=== PATIENT | male | born 1995 | race Two or more races ===

== ENCOUNTER 2017-07-19 19:15 | Observation (INO) | payer OTHER ==
[2017-07-19] MEDS ORDERED: NS 1,000 ML IV ONE ×2 (19:22→20:15)
--- NOTE | 2017-07-19 19:32 | EDPHY ---
HPI/HX/ROS/PE/MDM Narrative: CHIEF COMPLAINT: Abdominal pain HPI: The patient is a healthy 21 y/o male complaining of abdominal pain onset 1: 00 AM, 18 hours ago. He describes the pain as aching and worsened by touching the area. He had loose stool this morning and associated nausea. He denies vomiting, diarrhea, or any other associated symptoms. He denies history of abdominal surgery. REVIEW OF SYSTEMS: Aside from elements discussed in the HPI, a comprehensive 10-point review of systems was reviewed and is negative. PMH: Denies. 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 ENT:Eyes are normal to inspection. ENT inspection normal. Neck: Normal inspection. Full range of motion. Respiratory:No respiratory distress. Breath sounds normal bilaterally. Cardiovascular: Regular rate and rhythm. Strong peripheral pulses. Normal cap refill. Abdomen: Epigastrium and right lower quadrant tender to palpation. There are no peritoneal signs. There are normal bowel sounds. Back: Normal to inspection. No tenderness to palpation. Skin: Normal color. No rash. Warm and dry. Extremities: Normal appearance. Full range of motion. Neuro: Oriented x3. Normal motor function. Normal sensory function. ED Course: 2013: I spoke with radiology regarding this patient. They confirm appendicitis. 2018: I spoke with Dr. Livan Phan regarding this patient. He agrees to admit for surgery. Surgery will happen in a few hours since the patient recently ate. MDM: This patient presents with signs and symptoms of appendicitis, confirmed on CT. He requires surgical intervention and has remained stable over his ED course. - Data Points Imaging Results: Imaging Impressions Abdomen CT 07/19/17 19:29 Impression: Acute appendicitis. I telephoned results to Dr. Tyler Chen at 2012 hours. Study: CT of the abdomen Indication: Abdominal pain Results: CT scan of the abdomen was obtained. The results of the study are: appendicitis. The study was read by the radiologist, Dr. Kelley. I viewed the images myself on the PACS system. Imaging: Discussed imaging studies w/ call or contact centre manager Radiologist, I viewed and interpreted images myself Laboratory Results: Laboratory Results 07/19/17 19:28 07/19/17 19:28 07/19/17 07/19/17 07/19/17 19:28 19:28 19:26 WBC 10.55 10^3/uL H 10^3/uL (3.80-9.50) RBC 4.83 10^6/uL 10^6/uL (4.40-6.38) Hgb 14.6 g/dL g/dL (13.7-17.5) POC Hgb 15.0 gm/dL gm/dL (13.7-17.5) Hct 41.3 % % (40.0-51.0) POC Hct 44 % % (40-51) MCV 85.5 fL fL (81.5-99.8) MCH 30.2 pg pg (27.9-34.1) MCHC 35.4 g/dL g/dL (32.4-36.7) RDW 11.9 % % (11.5-15.2) Plt Count 263 10^3/uL 10^3/uL (150-400) MPV 9.9 fL fL (8.7-11.7) Neut % (Auto) 76.1 % H % (39.3-74.2) Lymph % (Auto) 18.4 % % (15.0-45.0) [place] % (Auto) 4.5 % % (4.5-13.0) Eos % (Auto) 0.3 % L % (0.6-7.6) Baso % (Auto) 0.3 % % (0.3-1.7) Nucleat RBC Rel Count 0.0 % % (0.0-0.2) Absolute Neuts (auto) 8.04 10^3/uL H 10^3/uL (1.70-6.50) Absolute Lymphs (auto) 1.94 10^3/uL 10^3/uL (1.00-3.00) Absolute Monos (auto) 0.47 10^3/uL 10^3/uL (0.30-0.80) Absolute Eos (auto) 0.03 10^3/uL 10^3/uL (0.03-0.40) Absolute Basos (auto) 0.03 10^3/uL 10^3/uL (0.02-0.10) Absolute Nucleated RBC 0.00 10^3/uL 10^3/uL (0-0.01) Immature Gran % 0.4 % % (0.0-1.1) Immature Gran # 0.04 10^3/uL 10^3/uL (0.00-0.10) POC Sodium 141 mEq/L mEq/L (134-144) Sodium 140 mEq/L mEq/L (134-144) POC Potassium 3.1 mEq/L L mEq/L (3.3-5.0) Potassium 3.3 mEq/L L mEq/L (3.5-5.2) POC Chloride 102 mEq/L mEq/L (97-110) Chloride 100 mEq/L mEq/L (97-110) Carbon Dioxide 23 mEq/l mEq/l (22-31) Anion Gap 17 mEq/L H mEq/L (8-16) POC BUN 16 mg/dL mg/dL (7-23) BUN 16 mg/dL mg/dL (7-23) Creatinine 0.8 mg/dL mg/dL (0.7-1.3) POC Creatinine 0.8 mg/dL mg/dL (0.7-1.3) Estimated GFR > 60 Glucose 115 mg/dL H mg/dL (70-100) POC Glucose 118 mg/dL H mg/dL (70-100) Calcium 9.8 mg/dL mg/dL (8.5-10.4) Total Bilirubin 0.5 mg/dL mg/dL (0.1-1.4) Conjugated Bilirubin 0.2 mg/dL mg/dL (0.0-0.5) Unconjugated Bilirubin 0.3 mg/dL mg/dL (0.0-1.1) AST 14 IU/L L IU/L (17-59) ALT 30 IU/L IU/L (21-72) Alkaline Phosphatase 85 IU/L IU/L (38-126) Total Protein 7.9 g/dL g/dL (6.3-8.2) Albumin 4.9 g/dL g/dL (3.5-5.0) Lipase 53 IU/L IU/L (23-300) Medications Given: Discontinued Medications Sodium Chloride (Ns) 1,000 mls @ 0 mls/hr IV ONCE ONE; Wide Open PRN Reason: Protocol Stop: 07/19/17 19:23 Last Admin: 07/19/17 19:25 Dose: 1,000 mls Sodium Chloride (Ns) 1,000 mls @ 0 mls/hr IV ONCE ONE PRN Reason: Wide Open Stop: 07/19/17 20:16 Last Admin: 07/19/17 20:38 Dose: 1,000 mls Ertapenem 1 gm/ Sodium (Chloride) 100 mls @ 200 mls/hr IV EDNOW ONE PRN Reason: Protocol Stop: 07/19/17 20:50 Last Admin: 07/19/17 21:00 Dose: 100 mls Ketorolac Tromethamine (Toradol) 30 mg IVP EDNOW ONE Stop: 07/19/17 20:13 Last Admin: 07/19/17 20:39 Dose: 30 mg Ondansetron HCl (Zofran) 4 mg IVP EDNOW ONE Stop: 07/19/17 20:58 Last Admin: 07/19/17 20:59 Dose: 4 mg Point of Care Test Results: 07/19/17 19:26 POC Sodium 141 POC Potassium 3.1 L POC Chloride 102 POC BUN 16 POC Creatinine 0.8 POC Glucose 118 H General Time Seen by Provider: 07/19/17 19:21 Initial Vital Signs: Initial Vital Signs Temperature (C) 36.5 C 07/19/17 19:15 Heart Rate 63 07/19/17 19:15 Respiratory Rate 18 07/19/17 19:15 Blood Pressure 78/65 L 07/19/17 19:15 O2 Sat (%) 98 07/19/17 19:15 Allergies/Adverse Reactions: No Known Allergies Allergy (Unverified 07/14/15 03:43) Home Medications: Medication Instructions Recorded Herbals/Supplements -Info Only 1 ea PO DAILY 07/19/17 Hydrocodone/Acetaminophen [[place] 1 - 2 tab PO Q4H PRN #14 tab 07/20/17 5/325 (*)] Departure - Departure Disposition: To OP Cath/Surgery Clinical Impression: Appendicitis Qualifiers: Appendicitis type: acute appendicitis Acute appendicitis type: other Qualified Code(s): K35.89 - Other acute appendicitis Condition: Good Report Scribed for: Tyler Chen Report Scribed by: Linn Bruno Date of Report: 07/19/17 Time of Report: 19:34 Physician Review and Approval Statement: Portions of this note were transcribed by an ED scribe. I personally performed the history, physical exam, and medical decision making; and confirm the accuracy of the information in the transcribed note.
[2017-07-19] MEDS ORDERED: IOPAMIDOL (ISOVUE-300) 100 ML BTL ONE (19:34)
[2017-07-19 19:50] LABS: % IMMATURE GRANULYOCYTES 0.4 % (0.0-1.1); ABSOLUTE IMMATURE GRANULOCYTES 0.04 10^3/uL (0.00-0.10); ADD DIFF? NO; ADD MORPH? NO; ADD SCAN? NO; ATYPICAL LYMPHOCYTE FLAG 10 (0-99); FRAGMENT RBC FLAG 0 (0-99); HEMATOCRIT 41.3 % (40.0-51.0); HEMOGLOBIN 14.6 g/dL (13.7-17.5); LEFT SHIFT FLG 0 (0-99); LIPEMIA HEMOLYSIS FLAG 90 (0-99); MEAN CELL HEMOGLOBIN 30.2 pg (27.9-34.1); MEAN CELL HEMOGLOBIN CONCENTR. 35.4 g/dL (32.4-36.7); MEAN CELL VOLUME 85.5 fL (81.5-99.8); MEAN PLATELET VOLUME 9.9 fL (8.7-11.7); PLATELET CLUMPS FLAG 10 (0-99); PLATELET COUNT 263 10^3/uL (150-400); RED BLOOD CELL COUNT 4.83 10^6/uL (4.40-6.38); RED CELL DISTRIBUTION WIDTH 11.9 % (11.5-15.2)
[2017-07-19 20:05] LABS: ALANINE AMINOTRANSFERASE 30 IU/L (21-72); ALBUMIN 4.9 g/dL (3.5-5.0); ALKALINE PHOSPHATASE 85 IU/L (38-126); ANION GAP 17 mEq/L (8-16); ASPARTATE AMINOTRANSFERASE 14 IU/L (17-59); BILIRUBIN,TOTAL 0.5 mg/dL (0.1-1.4); BILIRUBIN-CONJUGATED 0.2 mg/dL (0.0-0.5); BILIRUBIN-UNCONJUGATED 0.3 mg/dL (0.0-1.1); CALCIUM 9.8 mg/dL (8.5-10.4); CARBON DIOXIDE 23 mEq/l (22-31); CHLORIDE 100 mEq/L (97-110); CREATININE 0.8 mg/dL (0.7-1.3); GLOMERULAR FILTRATION RATE > 60; GLUCOSE 115 mg/dL (70-100); POTASSIUM 3.3 mEq/L (3.5-5.2); SODIUM 140 mEq/L (134-144); TOTAL PROTEIN 7.9 g/dL (6.3-8.2)
[2017-07-19] MEDS ORDERED: KETOROLAC 30 MG/1 ML SDV IVP ONE (20:12)
[2017-07-19] MEDS ORDERED: ERTAPENEM 1 GM in NS 100 ML IV ONE (20:21)
[2017-07-19] MEDS ORDERED: ONDANSETRON 4 MG/2 ML VIAL IVP ONE (20:57)
[2017-07-19 21:11] LABS: COLOR YELLOW; LEUKOCYTE ESTERASE,URINE NEGATIVE (NEGATIVE); NITRITE,URINE NEGATIVE (NEGATIVE)
--- NOTE | 2017-07-19 23:20 | PDGENHP ---
History and Physical - Chief Complaint abdominal pain - History of Present Illness healthy 21yo M. PAin started Wednesday AM at 0100. Has persisted and worsened. Is associated with nausea and vomiting. RLQ, non-radiating. No fevers, endorses chills. History Information - Allergies/Home Medication List Allergies/Adverse Reactions: No Known Allergies Allergy (Unverified 07/14/15 03:43) Home Medications: Herbals/Supplements -Info Only 1 ea PO DAILY 07/19/17 [Last Taken Unknown] I have personally reviewed and updated: family history, medical history, social history, surgical history - Past Medical History no pertinent PMH - Surgical History Reports: no pertinent surgical hx - Family History Positive for: non-pertinent - Social History Smoking Status: Never smoked Alcohol Use: None Drug Use: None Additional social history: From [facility], studying engineering at Review of Systems Review of Systems: ROS: 10pt was reviewed & negative except for what was stated in HPI & below Physical Exam Physical Exam: Temp Pulse Resp BP Pulse Ox 37.3 C 86 18 119/64 99 07/19/17 23:02 07/19/17 23:02 07/19/17 23:02 07/19/17 23:02 07/19/17 23:02 Constitutional: no apparent distress, appears nourished Eyes: PERRL, anicteric sclera Ears, Nose, Mouth, Throat: moist mucous membranes, hearing normal Cardiovascular: regular rate and rhythym, no murmur, rub, or gallop Respiratory: no respiratory distress, no rales or rhonchi Gastrointestinal: other (soft, TTP in the RLQ, no rebound ) Skin: warm Musculoskeletal: full muscle strength Neurologic: AAOx3 Psychiatric: interacting appropriately Lymph, Heme, Immunologic: no cervical LAD Lab Data & Imaging Review 07/19/17 19:28 07/19/17 19:28 WBC 10.55 10^3/uL (3.80-9.50) H 07/19/17 19:28 RBC 4.83 10^6/uL (4.40-6.38) 07/19/17 19:28 Hgb 14.6 g/dL (13.7-17.5) 07/19/17 19:28 POC Hgb 15.0 gm/dL (13.7-17.5) 07/19/17 19:26 Hct 41.3 % (40.0-51.0) 07/19/17 19: POC Hct 44 % (40-51) 07/19/17 19: MCV 85.5 fL (81.5-99.8) 07/19/17 19: MCH 30.2 pg (27.9-34.1) 07/19/17 19: MCHC 35.4 g/dL (32.4-36.7) 07/19/17: RDW 11.9 % (11.5-15.2) 07/19/17: Plt Count 263 10^3/uL (150-400) 07/19/17: MPV 9.9 fL (8.7-11.7) 07/19/17: Neut % (Auto) 76.1 % (39.3-74.2) H 07/19/17: Lymph % (Auto) 18.4 % (15.0-45.0) 07/19/17: [place] % (Auto) 4.5 % (4.5-13.0) 07/19/17: Eos % (Auto) 0.3 % (0.6-7.6) L 07/19/17: Baso % (Auto) 0.3 % (0.3-1.7) 07/19/17: Nucleat RBC Rel Count 0.0 % (0.0-0.2) 07/19/17: Absolute Neuts (auto) 8.04 10^3/uL (1.70-6.50) H 07/19/17 19: Absolute Lymphs (auto) 1.94 10^3/uL (1.00-3.00) 07/19/17: Absolute Monos (auto) 0.47 10^3/uL (0.30-0.80) 07/19/17 19: Absolute Eos (auto) 0.03 10^3/uL (0.03-0.40) 07/19/17 19: Absolute Basos (auto) 0.03 10^3/uL (0.02-0.10) 07/19/17: Absolute Nucleated RBC 0.00 10^3/uL (0-0.01) 07/19/17 19: Immature Gran % 0.4 % (0.0-1.1) 07/19/17 19: Immature Gran # 0.04 10^3/uL (0.00-0.10) 07/19/17 19:28 POC Sodium 141 mEq/L (134-144) 07/19/17 19: Sodium 140 mEq/L (134-144) 07/19/17 19:28 POC Potassium 3.1 mEq/L (3.3-5.0) L 07/19/17 19: Potassium 3.3 mEq/L (3.5-5.2) L 07/19/17 19: POC Chloride 102 mEq/L (97-110) 07/19/17 19: Chloride 100 mEq/L (97-110) 07/19/17 19: Carbon Dioxide 23 mEq/l (22-31) 07/19/17 19: Anion Gap 17 mEq/L (8-16) H 07/19/17 19:28 POC BUN 16 mg/dL (7-23) 07/19/17 19: BUN 16 mg/dL (7-23) 07/19/17 19:28 Creatinine 0.8 mg/dL (0.7-1.3) 07/19/17 19:28 POC Creatinine 0.8 mg/dL (0.7-1.3) 07/19/17 19: Estimated GFR > 60 07/19/17 19:28 Glucose 115 mg/dL (70-100) H 07/19/17 19:28 POC Glucose 118 mg/dL (70-100) H 07/19/17 19: Calcium 9.8 mg/dL (8.5-10.4) 07/19/17 19:28 Total Bilirubin 0.5 mg/dL (0.1-1.4) 07/19/17 19:28 Conjugated Bilirubin 0.2 mg/dL (0.0-0.5) 07/19/17 19:28 Unconjugated Bilirubin 0.3 mg/dL (0.0-1.1) 07/19/17 19:28 AST 14 IU/L (17-59) L 07/19/17 19:28 ALT 30 IU/L (21-72) 07/19/17 19:28 Alkaline Phosphatase 85 IU/L (38-126) 07/19/17 19:28 Total Protein 7.9 g/dL (6.3-8.2) 07/19/17 19:28 Albumin 4.9 g/dL (3.5-5.0) 07/19/17 19:28 Lipase 53 IU/L (23-300) 07/19/17 19:28 Urine Color YELLOW 07/19/17 21:00 Urine Appearance CLEAR 07/19/17 21:00 Urine pH 6.0 (5.0-7.5) 07/19/17 21:00 Ur Specific [place] > 1.035 (1.002-1.030) H 07/19/17 21:00 Urine Protein NEGATIVE (NEGATIVE) 07/19/17 21:00 Urine Ketones NEGATIVE (NEGATIVE) 07/19/17 21:00 Urine Blood NEGATIVE (NEGATIVE) 07/19/17 21:00 Urine Nitrate NEGATIVE (NEGATIVE) 07/19/17 21:00 Urine Bilirubin NEGATIVE (NEGATIVE) 07/19/17 21:00 Urine Urobilinogen NEGATIVE EU (0.2-1.0) 07/19/17 21:00 Ur Leukocyte Esterase NEGATIVE (NEGATIVE) 07/19/17 21:00 Urine Glucose NEGATIVE (NEGATIVE) 07/19/17 21:00 Visualized and Interpreted imaging results: Yes Interpretation: CT abdomen: acute, retrocecal appendicitis with fecaliths x2 Assessment & Plan Assessment: Appendicitis (Acute) Plan: 21yo M c acute non perforated appendicitis. To OR for lap ELISHA gambino discussed
--- NOTE | 2017-07-19 23:32 | PDANEPAE ---
ANE History of Present Illness acute appendicitis ANE Past Medical History - Pulmonary History Hx Oxygen in Use at Home: No Hx Sleep Apnea: No - Endocrine History Hx Diabetes: No ANE Review of Systems Review of Systems: - Exercise capacity METS (RN): 4 METS ANE Patient History - Allergies Allergies/Adverse Reactions: No Known Allergies Allergy (Unverified 07/14/15 03:43) - Home Medications Home Medications: Herbals/Supplements -Info Only 1 ea PO DAILY 07/19/17 [Last Taken Unknown] - NPO status NPO Since - Liquids (Time): 18:00 NPO Since - Solids (Date): 07/19/17 NPO Since - Solids (Time): 18:45 - Smoking Hx Smoking Status: Never smoked - Alcohol Use Alcohol Use: None ANE Labs/Vital Signs - Labs Result Diagrams: 07/19/17 19:28 07/19/17 19:28 - Vital Signs Blood Pressure: 119/64 Heart Rate: 86 Respiratory Rate: 18 O2 Sat (%): 99 Height: 185.42 cm Weight: 72.575 kg ANE Physical Exam - Airway Neck exam: FROM Mallampati Score: Class 1 Mouth exam: normal dental/mouth exam - Pulmonary Pulmonary: no respiratory distress - Cardiovascular Cardiovascular: regular rate and rhythym - ASA Status ASA Status: II, E ANE Anesthesia Plan Anesthesia Plan: general endotracheal anesthesia
[2017-07-19] MEDS ORDERED: fentaNYL 100 MCG/2 ML INJ ONE ×2 (23:57)
[2017-07-19] MEDS ORDERED: PROPOFOL 200 MG/20 ML VIAL ONE (23:57)
[2017-07-20] MEDS ORDERED: ONDANSETRON 4 MG/2 ML VIAL ONE (00:15)
[2017-07-20] MEDS ORDERED: DEXAMETHASONE 4 MG/ML VIAL ONE (00:15)
[2017-07-20] MEDS ORDERED: ROCURONIUM 50 MG/5 ML VIAL ONE (00:15)
[2017-07-20] MEDS ORDERED: BUPIVACAINE 0.25% 30 ML SDV ONE (00:17)
[2017-07-20] MEDS ORDERED: HYDROCODONE/APAP 5/325 TAB PO PRN (00:43)
[2017-07-20] MEDS ORDERED: HYDROmorphONE/DILAUDID 1 MG/ML INJ IVP PRN (00:43)
[2017-07-20] MEDS ORDERED: ONDANSETRON 4 MG/2 ML VIAL IVP PRN ×2 (00:43→00:53)
[2017-07-20] MEDS ORDERED: PROMETHAZINE HCL 25 MG/ML INJ IVP PRN (00:43)
[2017-07-20] MEDS ORDERED: NALOXONE HCL 0.4 MG/ML INJ IVP PRN (00:43)
[2017-07-20] MEDS ORDERED: MEPERIDINE 25 MG/ML SYR IVP PRN (00:43)
--- NOTE | 2017-07-20 00:53 | POSTOPPROG ---
Post Op Note Date of Operation: 07/20/17 Surgeon: Livan Phan Anesthesiologist: Daniel Anesthesia: GET(General Endotracheal) Pre-op Diagnosis: appendicitis Post-op Diagnosis: same Procedure: lap appy Findings: acute non perforated Inf/Abcess present in the surg proc area at time of surgery?: No EBL: Minimal Specimen(s): appendix
--- NOTE | 2017-07-20 00:54 | POSTANESTH ---
Post Anesthetic Evaluation Cardiovascular Status: Normal, Stable Respiratory Status: Normal, Stable Level of Consciousness/Mental Status: Can Participate in Eval Pain Control: Adequate, Prn Tx Ordered Nausea/Vomiting Control: Adequate, Prn Tx Ordered Complications Possibly Related to Anesthesia: None Noted
[2017-07-20] MEDS ORDERED: D5W 1/2 NS W/ 20 KCl/L 1,000 ML IV SCH (01:00)
[2017-07-20] MEDS ORDERED: fentaNYL 100 MCG/2 ML INJ ONE (01:04)
[2017-07-20] MEDS: fentaNYL 100 MCG/2 ML INJ IVP PRN ×2 (01:05→01:10)
[2017-07-20] MEDS: KETOROLAC 15 MG/1 ML SDV IVP SCH ×2 (02:15→10:45)
[2017-07-20 03:33] VITALS: O2SAT 93
[2017-07-20] MEDS: HYDROmorphONE/DILAUDID 1 MG/ML INJ IVP PRN ×2 (04:12→06:41)
[2017-07-20 04:24] VITALS: RESP 18
[2017-07-20] MEDS ORDERED: KETOROLAC 15 MG/1 ML SDV IVP SCH (06:00)
--- NOTE | 2017-07-20 12:31 | GOP ---
[f rep st] OPERATIVE REPORT DATE OF OPERATION: 07/20/2017 SURGEON: Livan Phan MD BEAD WRAPPER: None. ANESTHESIA: General endotracheal ANESTHESIOLOGIST: Dr. Sanchez. PREOPERATIVE DIAGNOSIS: Appendicitis. POSTOPERATIVE DIAGNOSIS: Appendicitis. PROCEDURE PERFORMED: Laparoscopic appendectomy. FINDINGS: Acute indurated nonperforated appendicitis. SPECIMENS: Appendix. ESTIMATED BLOOD LOSS: 5 cc. DESCRIPTION OF PROCEDURE: The patient was greeted in the preoperative suite. Once again, risks, elsie efits, and alternatives were discussed. Consent was signed. He was then brought back to the operati ve suite, placed on the OR table in supine position. After all anesthesia machines, including SCDs, were on and functioning, a World Health Organization time-out was performed, ending with all in agree ment. After successful induction of general anesthesia, the patient's abdomen was widely prepped and draped in typical sterile fashion. I entered the abdomen via an infraumbilical cutdown, through whi ch a Veress needle was passed and pneumoperitoneum to 15 mmHg CO2 was achieved and well tolerated by the patient. Through this, I inserted a 10 mm Visiport. I then inserted two additional 5 mm ports, one in the suprapubic and one in the left lower quadrant, under direct visualization. I identified t todd appendix by tracing the taeniae inferiorly. Again, it appeared to branch up and sit in the retroc olic gutter. I successfully mobilized it from this. I created a window at the base of the appendix and successfully amputated it from the cecal base using a single fire of the Endo-CHERELLE blue load stapl er. I then took the mesentery with 2 fires of the Endo-CHERELLE white load stapler. I did have 1 small b leeder on the staple line, which was successfully made hemostatic with hemoclips. I then irrigated t he right upper quadrant, my operative site, and pelvis with warm normal saline, noting clear effluent in the suction canister. I inspected my staple lines, which were intact and hemostatic. Local anes thesia was infiltrated into all port sites. Pneumoperitoneum was then evacuated, and my infraumbilic al site was closed with a [id number] 0 Vicryl stitch, noting excellent fascial reapproximation. The skin was then closed with Monocryl, over which Dermabond was placed. The patient was then extub ated in the operative suite and taken to the PACU in satisfactory condition. DRAINS: None. COUNTS: All counts were reported as correct x2. /[id number]/MODL
--- NOTE | 2017-07-20 12:48 | SOAPPROG ---
SOAP Progress Note Assessment/Plan: Assessment: 21yo M s/p lappy - doing well home Plan: 07/20/17 12:48 Objective: Vital Signs Temp Pulse Resp BP Pulse Ox 37.6 C 76 18 106/62 93 07/20/17 04:20 07/20/17 04:20 07/20/17 04:20 07/20/17 04:20 07/20/17 04:20 07/19/17 07/20/17 07/21/17 05:59 05:59 05:59 Intake Total 2750 Output Total 10 Balance 2740 ICD10 Worksheet Patient Problems: Problems Problem Status Onset Appendicitis Acute
[2017-07-20 15:58] VITALS: BP 105/66; PULSE 70; TEMP 97.6
== END 2017-07-20 13:15 | disposition home or self-care (01) ==
LOC: FOB 21:28
PROVIDERS: ADMIT Surgery; ATTEND Surgery
PROC: 0DTJ4ZZ Resection of Appendix, Percutaneous Endoscopic Approach (ICD-10-PCS; principal; 2017-07-20)
DX: K35.80 Unspecified acute appendicitis (principal)
CPT/HCPCS: 44970; 74177; G0378; 82947-QW; 96365; J1100; J1170; J1335; J1885; J2405; J2704; J3010; Q9967